=== PATIENT | female | born 1955 | race Caucasian/White ===

== ENCOUNTER 2020-02-07 10:01 | Inpatient (IN) | payer MEDICARE, OTHER, SELFPAY ==
[2020-02-07] VITALS (14 sets, daily range): BP systolic 128–192; BP diastolic 77–98; PULSE 125–158; RESP 13–22; TEMP 36.1–36.9; O2SAT 83–99; BMI 35.0
--- NOTE | ~2020-02-07 | US_ITS ---
EXAMINATION: US GUIDED NEEDLE BIOPSY WITH VACUUM ASSISTANCE DATE: 02/11/2020 14:31 CDT INDICATION: Multiple right breast masses seen on recent ultrasound. Ultrasound-guided core biopsy is requested to evaluate for malignancy. TECHNIQUE AND FINDINGS: The risks and potential benefits of the procedure were discussed with the patient, and written inform ed consent was obtained. After sterile preparation of the right breast, 1% lidocaine was utilized fo r local anesthesia. 1% lidocaine with epinephrine was used for deep anesthesia. A 10G vacuum-assisted biopsy gun needle was advanced through to the outer edge of the region of inter est from a superior approach utilizing sonographic guidance. A total of three tissue core samples we re obtained through each lesion, located at 9 and 1:00 positions.. An Inrad tissue marker clip was t hen placed at the biopsy site. Hemostasis was achieved. The patient tolerated procedure well and there was no evidence of immediate complication. The patien t was given verbal instructions partly is from the department. Patient was able to tolerate mammogram . The tissue samples were submitted to surgical pathology for histologic analysis.] IMPRESSION: 1. Successful ultrasound-guided vacuum-assisted biopsy of left/right breast mass with tissue marker placement. Please refer to pathology report for histologic analysis. Reviewed, dictated and finalized at location A. IMPRESSION: 1. Successful ultrasound-guided vacuum-assisted biopsy of left/right breast ma ss with tissue marker placement. Please refer to pathology report for histologi c analysis.
--- NOTE | ~2020-02-07 | US_ITS ---
US breast BI complete DATE: 02/08/2020 13:06 INDICATION: Right breast mass TECHNIQUE: High-resolution ultrasound imaging of both complete breasts. The patient is in the U. There are scanning limitations due to patient condition. COMPARISON: 02/07/2020 CT abdomen pelvis FINDINGS: Right breast: 1:00 6 cm from nipple: Irregular hypoechoic shadowing mass measuring 16 x 14 x 16 mm, highly suggesti ve of malignancy 9:00 7 cm from nipple: Irregular hypoechoic 25 x 15 x 21 mm mass with posterior shadowing, highly sug gestive of malignancy Left breast: No suspicious mass or shadowing is identified. IMPRESSION: BI-RADS Category 5: Highly suggestive of malignancy. Appropriate action should be taken. Dr. Portillo telephoned the report to [facility] Nurse Malone on 02/08/2020 at 1320 hours. Reviewed, dictated and finalized at Location [facility]. Reviewed, dictated and finalized at location A. IMPRESSION: BI-RADS Category 5: Highly suggestive of malignancy. Appropriate ac tion should be taken. Dr. Portillo telephoned the report to [facility] Nurse Malone on 02/08/2020 at 1320 hours.
--- NOTE | ~2020-02-07 | CT_ITS ---
EXAMINATION: CT abdomen pelvis w con EXAM DATE: 02/07/2020 12:28 INDICATION: Abdominal pain. Constipation. TECHNIQUE: Spiral CT of the abdomen and pelvis was performed following intravenous injection of 100 m L Omnipaque 350. Axial, coronal and sagittal images were reviewed. The dose-length product (DLP) fo r this examination was 1344.47 mGy-cm. The exposure was tailored according to patient size (auto mA exposure control), and iterative reconstruction (ASIR) was used as additional dose reduction techniqu e. Comparison is made to prior examination from 12/18/2009. FINDINGS: There is interval development of spiculated right breast soft tissue mass which is higher i n density than the normal stromal tissue, region measuring about 2.3 cm in diameter. Appearance is hi ghly suspicious for breast cancer. Recommend mammography. Interval development of scattered osteolyt ic disease throughout the thoracolumbar spine, pelvis, and hips with pathological compression fractur e of T8 which is nearly completely marrow replaced. Liver has a nodular contour, probably cirrhosis, with hypertrophied appearance to the left liver lobe . No focal density abnormality. There are gallstones within an otherwise unremarkable gallbladder. No evidence of obstructive biliary disease. Portal and splenic veins are patent. Kidneys enhance sy mmetrically. There is no hydronephrosis. The uterus is unremarkable. The bladder is unremarkable . There is no retroperitoneal or pelvic lymphadenopathy. There is mild scattered arteriosclerotic disease. The appendix is not positively visualized. There is no pericecal inflammatory change to suggest appe ndicitis. The stomach and small bowel are unremarkable. There is moderate amount of colonic stool. No free intraperitoneal gas. Heart is normal in size. There are small bilateral pleural effusion s. Bibasilar subsegmental atelectasis. IMPRESSION: 1. Right breast mass likely cancer; recommend mammography. 2. 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 3. Probable cirrhosis. 4. Cholelithiasis. 5. No acute intra-abdominal findings. Reviewed, dictated and finalized at location A.
--- NOTE | ~2020-02-07 | XR_ITS ---
XR abdomen NG/feed tube insert INDICATION: Evaluate NG tube position. TECHNIQUE: Limited KUB perform for evaluating NG tube . COMPARISON: No prior studies for comparison. FINDINGS: NG tube tip in the stomach. Visualized bowel gas pattern is unremarkable. IMPRESSION: 1: NG tube tip in the stomach. Reviewed, dictated and finalized at location A.
--- NOTE | ~2020-02-07 | XR_ITS ---
EXAMINATION: XR abdomen/kub 1V DATE: 02/08/2020 13:41 INDICATION: Abdominal pain. Constipation. TECHNIQUE: A supine view of the abdomen on 2 radiographs was obtained. COMPARISON: CT abdomen and pelvis 02/07/2020 FINDINGS: The colon is mildly distended. There is a small volume of stool in the colon. The small bow el is normal in caliber. IMPRESSION: 1. Mildly distended colon, likely adynamic ileus. Reviewed, dictated and finalized at location A.
--- NOTE | ~2020-02-07 | XR_ITS ---
EXAMINATION: XR abdomen/kub 1V EXAM DATE: 02/09/2020 13:30 INDICATION: Constipation. Newly found right breast mass and scattered osteolytic disease. TECHNIQUE: Frontal projection(s) of the abdomen for interpretation. Comparison is made to prior exami nation from 02/07. FINDINGS: Feeding tube projects over gastric body, antrum, expected position. There is moderate amou nt of colonic stool and gas. No dilated small bowel. Bowel gas overlies the bones There is no organom egaly. IMPRESSION: 1. Moderate amount of colonic stool and gas. Reviewed, dictated and finalized at location A.
--- NOTE | 2020-02-07 10:08 | ED.ABDPAIN ---
HPI - Abdominal Pain General Chief Complaint: Abdominal Pain Stated Complaint: Abd pain Source: RN notes reviewed History of Present Illness HPI narrative: Patient presents emergency department from home for abdominal pain. Patient states pain can 2 days ago pain is described as diffuse and sharp and stabbing. Patient states she has been constipated and been taking laxatives with minimal relief. She notes one episode of emesis earlier today. Denies any fevers or chills chest pain shortness of breath or any other symptoms Related Data Home Medications Medication Instructions Recorded Confirmed amlodipine 10 mg PO DAILY 02/07/20 02/07/20 calcium carbonate [Calcium 600] 600 mg PO DAILY 02/07/20 02/07/20 cholecalciferol (vitamin D3) 125 mcg PO DAILY 02/07/20 02/07/20 [Vitamin D3] citalopram 20 mg PO HS 02/07/20 02/07/20 cyanocobalamin (vitamin B-12) 1,000 mcg PO DAILY 02/07/20 02/07/20 [Vitamin B-12] diazepam 5 mg PO Q8H 02/07/20 02/07/20 dimethyl fumarate [Tecfidera] 240 mg PO Q12H 02/07/20 02/07/20 levothyroxine 75 mcg PO DAILY 02/07/20 02/07/20 tizanidine 4 mg PO BID 02/07/20 02/07/20 tizanidine 5 mg PO HS 02/07/20 02/07/20 tramadol 50 mg PO Q6H 02/07/20 02/07/20 venlafaxine 150 mg PO HS 02/07/20 02/07/20 Allergies Allergy/AdvReac Type Severity Reaction Status Date / Time No Known Drug Allergies Allergy Other Verified 02/07/20 15:48 Review of Systems Review of Systems: Narrative: Gen.: Denies fevers or chills ENT: Denies congestion Respiratory: Denies shortness of breath or cough CV: Denies chest pain or palpitations GI: See HPI denies burning, urgency, frequency or hematuria Musculoskeletal: Denies back pain or muscle pain Neuro: Denies numbness, tingling, weakness or focal weakness Skin: Denies rash Except as documented, all other systems reviewed and negative [facility] Past Medical History Medical History (Updated 02/07/20 @ 16:55 by Harshil Coreas DO) Multiple sclerosis Family History Family History (Updated 02/07/20 @ 16:48 by Julianne Patel RN) Other Unknown family medical history Social History Social History (Updated 02/07/20 @ 10:09 by Harshil Coreas DO) Years smoked: 10 Smoking status: Former smoker Tobacco type: cigarettes Second hand tobacco smoke exposure: Yes Alcohol intake: never Substance use: never Gender identity (if verbalized by the patient): Female Spiritual care concerns: No Exam Narrative: Exam Narrative: APPEARANCE: No acute distress, nontoxic, resting in bed HEENT: Normocephalic, atraumatic, OMM RESPIRATORY: No respiratory distress, clear to auscultation bilaterally with no rhonchi wheezing or rales CARDIOVASCULAR: Tachycardic and regular s murmur ABDOMINAL: Distended and firm, diffusely tender to palpation no rebound or guarding MUSCULOSKELETAl: Moves all extremities. No clubbing, cyanosis or edema. NEURO: Awake and alert. Following commands, speech normal, no focal deficits SKIN:: Warm, dry. Normal Color PSYCHIATRIC: Normal affect/mood Course Course Emergency Course: Discussed with patient's power of defense attorney Bambi updated on CT results. She states the patient has been complaining of back pain for the past 1 month states the patient has been having increasing constipation they have been giving enemas at home with minimal relief Discussed with the patient results of the work-up. Patient is unsure if she wants treatment but does wish to know the extent of treatment and possible outcomes Discussed with MARTHA Botello for Dr. Hamilton presentation work-up. Agrees with admission at this time Discussed with patient and family results of workup and diagnosis. Discussed need for admission. Patient and family understand and agree to current treatment plan Vital Signs Vital signs: Vital Signs Temperature 98.4 F 02/07/20 10:02 Pulse Rate 133 H 02/07/20 10:02 Respiratory Rate 20 02/07/20 10:02 Blood Pressure 173/93 H 02/07/20 10:02
[2020-02-07] MEDS: SODIUM CHLORIDE 0.9% IV 1,000 ML 999 ML IV CONT (10:17)
--- NOTE | 2020-02-07 10:38 | PC.NURSE ---
unable to obtain blood at this time. RN notified.
[2020-02-07 10:54] LABS: Add Urine Microscopic? YES; Appearance Urine Clear (Clear); Bacteria Urine Trace /hpf; Bilirubin Urine Negative (Negative); Blood Urine 1+ (Negative); Color Urine Yellow (Yellow); Glucose Urine UA Negative (Negative); Ketones Urine 1+ mg/dL (Negative); Leukocyte Esterase Ur 2+ LEU/UL (Negative); Mucus Urine Rare /lpf; Nitrate Urine Negative (Negative); Protein Urine Negative (Negative); RBC Urine 21-50 /hpf (0-2); Specific Grav Ur 1.013 (1.001-1.035); Squamous Epithelial Cell Urine Occasional /hpf (Few); Urobilinogen Urine Negative mg/dL (<2.0); WBC Urine 31-50 /hpf
--- NOTE | 2020-02-07 11:00 | PC.NURSE ---
Phlebotomy in room for difficult lab draw.
--- NOTE | 2020-02-07 11:29 | PC.NURSE ---
Lab phlebotomy unable to get blood cultures or lactic, informed Dr Coreas
[2020-02-07 11:38] LABS: Basophils Percent Auto 0.5 % (0.2-1.2); Eosinophils Absolute Auto 0.1 K/mm3 (0-0.3); Eosinophils Percent Auto 1.3 % (0-4.4); Hematocrit 39.2 % (37.0-47.0); Hemoglobin 12.5 g/dL (12.0-15.0); Immature Granulocyte Absolute 0.06 K/mm3 (0.00-0.031); Immature Granulocyte Percent A 0.8 % (0-0.5); Lymphocytes Absolute Auto 0.91 K/mm3 (0.9-3.2); Lymphocytes Percent Auto 11.7 % (18.3-44.2); Mean Corpuscular HGB Conc 31.9 g/dl (32-36); Mean Corpuscular Hemoglobin 28.1 pg (26-34); Mean Corpuscular Volume 88.1 fl (80-100); Mean Platelet Volume 9.5 fl (7.4-10.4); Monocytes Absolute Auto 0.5 K/mm3 (0.1-0.6); Monocytes Percent Auto 6.3 % (2.6-8.5); Neutrophils Absolute Auto 6.2 K/mm3 (1.3-6.7); Neutrophils Percent Auto 79.4 % (45.5-73.1); Platelet Count Result 349 k/mm3 (150-375); Red Blood Count 4.45 M/mm3 (4.2-5.4); Red Cell Distribution Width 15.6 % (11.5-14.5); White Blood Count 7.8 K/mm3 (4.5-10.0)
[2020-02-07 11:49] LABS: INR 1.1; Prothrombin Time 13.8 Seconds (11.1-14.7)
[2020-02-07 11:50] LABS: Partial Thromboplastin Time 23.4 SECONDS (22.3-36.8)
[2020-02-07 12:00] LABS: Alanine Aminotransferase 83 U/L (4-35); Albumin Level 4.5 g/dL (3.5-5.1); Alkaline Phosphatase 280 U/L (38-126); Aspartate Amino Transferase 74 U/L (14-36); Bilirubin,Total 0.6 mg/dL (0.2-1.3); Blood Urea Nitrogen 8 mg/dL (7-17); Carbon Dioxide 23 mmol/L (22-30); Chloride 100 mmol/L (98-107); Estimated CRCL calculation 117 ml/min; Estimated Glomerular Filt Rate > 60; Glucose 174 mg/dL (65-105); Lipase 80 U/L (23-300); Sodium 140 mmol/L (137-145)
[2020-02-07 12:17] LABS: Lactic Acid Reflex 0.8 mmol/L (0.7-2.1)
[2020-02-07] MEDS: MORPHINE SULFATE 4 MG/ML INJ IV PUSH (13:10)
--- NOTE | 2020-02-07 15:00 | PC.NURSE ---
This patient, Ivonne Saldaña, was admitted to IMU Room 214-01. Patient/family oriented to hospital policies and general routines including ID bracelet, bed and alarms, visiting hours, pain management, procedures, bathroom and other care routines, personal items, smoking policy, room service/diet, and visiting hours. Valuables list has been completed. Information on how to activate the Rapid Response Team has been discussed. Patient/Family are encouraged to report perceived risks to care and to ask questions if they do not understand what they are told or what they should do.
[2020-02-07] MEDS: SODIUM CHLORIDE 0.9% IV 1,000 ML 125 ML IV CONT (15:42)
[2020-02-07] MEDS: ONDANSETRON INJ 4 MG/2 ML VIAL IV PUSH (17:04)
--- NOTE | 2020-02-07 17:48 | PDONCCN ---
HPI - Date of Consult Date/Time: 02/07/20 17:49 Requesting Physician: Nga Colvin MD Primary Care Provider: Dada Lozano, - Consult Narrative Reason for consult: Right breast mass Narrative: Ivonne Saldaña is a 64 year old female This is a pleasant 64-year-old female with history of multiple sclerosis for more than 30 years duration and has been on wheelchair for last at least 5 years duration. Patient has chronic constipation and has has been on laxative for long time. She developed abdominal distention with back pain about 3-4 days ago. Her last bowel movement was about 3 days ago. She denies any lumps and bowels. Her last mammogram was more than 10 years ago. She denies any weight loss. Denies any other complaints. In the ER CT scan was ordered that showed right breast mass and scattered osteolytic lesion with T8 compression fracture Review of Systems - Review of Systems All systems reviewed & are unremarkable except as noted in HPI and [facility] Medical History: Medical History (Last Reviewed 02/07/20 @ 17:51 by Connor Broussard MD) Multiple sclerosis Family History: Family History (Last Updated 02/07/20 @ 17:53 by Connor Broussard MD) Mother Leukemia Father Throat cancer Mother No problems noted. Other Unknown family medical history - Social History Social History: Social History (Last Reviewed 02/07/20 @ 17:53 by Connor Broussard MD) Gender Identity: Gender identity (if verbalized by the patient): Female Alcohol Use: Alcohol intake: never Substance Use: Substance use: never Others: Spiritual care concerns: No Smoking Status: Smoking status: Former smoker Tobacco type: cigarettes Second hand tobacco smoke exposure: Yes Approximate Smoking End Date: 30 years ago Smoking Pack-years: Years smoked: 10 Meds Home Medications Medication Instructions Recorded Confirmed Type amlodipine 10 mg PO DAILY 02/07/20 02/07/20 History calcium carbonate [Calcium 600] 600 mg PO DAILY 02/07/20 02/07/20 History cholecalciferol (vitamin D3) 125 mcg PO DAILY 02/07/20 02/07/20 History [Vitamin D3] citalopram 20 mg PO HS 02/07/20 02/07/20 History cyanocobalamin (vitamin B-12) 1,000 mcg PO DAILY 02/07/20 02/07/20 History [Vitamin B-12] diazepam 5 mg PO Q8H 02/07/20 02/07/20 History dimethyl fumarate [Tecfidera] 240 mg PO Q12H 02/07/20 02/07/20 History levothyroxine 75 mcg PO DAILY 02/07/20 02/07/20 History tizanidine 4 mg PO BID 02/07/20 02/07/20 History tizanidine 5 mg PO HS 02/07/20 02/07/20 History tramadol 50 mg PO Q6H 02/07/20 02/07/20 History venlafaxine 150 mg PO HS 02/07/20 02/07/20 History Allergies Allergy/AdvReac Type Severity Reaction Status Date / Time No Known Drug Allergies Allergy Other Verified 02/07/20 15:48 Results - Labs CBC & Chem 7: 02/07/20 11:30 02/07/20 11:30 Labs: Short CBC 02/07/20 Range/Units 11:30 WBC 7.8 (4.5-10.0) K/mm3 Hgb 12.5 (12.0-15.0) g/dL Hct 39.2 (37.0-47.0) % Plt Count 349 (150-375) k/mm3 BMP 02/07/20 11:30 Sodium 140 Potassium 4.0 Chloride 100 Carbon Dioxide 23 BUN 8 Creatinine 0.40 L Glucose 174 H Calcium 10.0 Liver Function 02/07/20 Range/Units 11:30 Total Bilirubin 0.6 (0.2-1.3) mg/dL AST 74 H (14-36) U/L ALT 83 H (4-35) U/L Alkaline Phosphatase 280 H (38-126) U/L Albumin 4.5 (3.5-5.1) g/dL Urine 02/07/20 Range/Units 10:42 Urine Color Yellow (Yellow) Urine Appearance Clear (Clear) Urine pH 7.0 (5.0-9.0) Ur Specific [place] 1.013 (1.001-1.035) Urine Protein Negative (Negative) mg/dL Urine Glucose (UA) Negative (Negative) mg/dL Assessment and Plan - Additional Plan Right breast mass. On my examination there is at least 3-4 cm right breast mass at 9:00 a.m. position without any axillary lymphadenopathy. There is no masses in th
--- NOTE | 2020-02-07 18:23 | PM.IMHP ---
H&P: HPI History of Present Illness Chief complaint: Breast mass with lytic lesions/UTI/abdominal pain/ Narrative: Ivonne Saldaña is a 64 year old female Who has a history of multiple sclerosis. The patient typically has doors that comes into her house and helps throughout. She lives home alone. She came to the emergency room for complaints of abdominal pain I talked to Bambi who stated that the patient has been having some abdominal pain and lower back pain for at least 2 weeks. The patient typically has a normal bowel regimen and believes that the patient had an at [place] enema about a week ago. The patient stated she has not had a bowel movement 3 days. She has tried lactulose and that did seem to help. Her abdomen is distended and firm. The patient had a emesis prior to me coming in to see her about a 1000 cc. She is incontinent of urine. She is requesting a Whitlock catheter. She has had no fever chills. She feels weaker than normal. She has had MS for several years she had symptoms that started back in the 70s but was not officially diagnosed until 1994. Her lesions were seen on her spine. She was given IV Tylenol, normal saline IV fluids, IV morphine, and Rocephin. she was tachycardic with heart rate in the 120s. She was placed in the IMU because of her tachycardia. Patient was positive for UTI. She had an abdominal pelvis CT which was read as right breast mass likely cancer recommend mammographically, scattered osteolytic lesion with pathological compression fracture T8. Probable cirrhosis. Cholelithiasis. No acute abdominal findings. Oncology has been consulted and has already seen the patient. Oncology recommended mammogram and ultrasound-guided biopsy. The patient is agreeable. She and the power mergers and acquisitions attorney agreed that the patient will be a DNR. She says she has been thinking about this prior to her diagnosis today and wishes to be a DNR. Date of service is 02/07/2020. Patient also complains of increased weakness so possible exacerbation of her MS versus a UTI. I spent at least 1 hour with the patient. Review of Systems Review of Systems: All systems reviewed & are unremarkable except as noted in HPI and below Constitutional: Constitutional: Reports as per HPI and Reports no additional constitutional complaints Eyes: Eyes: Reports as per HPI and Reports no additional eye complaints ENT: Reports system reviewed and no additional complaints, except as documented and Reports Normal hearing present Cardiovascular: Cardiovascular: Reports no additional cardiovascular complaints Respiratory: Respiratory: Reports no additional respiratory complaints and Reports no additional respiratory complaints Gastrointestinal: Gastrointestinal: Reports as per HPI and Reports no additional gastrointestinal complaints Musculoskeletal: Musculoskeletal: Reports no additional musculoskeletal complaints Integumentary/Breasts: Skin/Breast: Reports system reviewed and no additional complaints, except as docu and Reports as per HPI Neurologic: Reports system reviewed and no additional complaints, except as documented, Reports as per HPI and Reports Normal hearing present Psychiatric: Psychiatric: Reports no additional psychiatric complaints and Reports as per HPI Endocrine: Endocrine: Reports no additional endocrine complaints Hematologic/Lymphatic: Hematologic/Lymphatic: Reports no additional hematologic/lymphatic complaints Allergic/Immunologic: Allergic/Immunologic: Reports no additional allergic/immunologic complaints [facility] Past Medical History Medical History (Updated 02/07/20 @ 18:30 by Rosmery Santa NP) Anxiety and depression History of hepatitis C completed treatment Hypertension Hypothyroidism Multiple sclerosis Surgical History Surgical History (Updated 02/07/20 @ 18:30 by Rosmery Santa NP) H/O bilateral cataract extraction Family History Family History Mot
[2020-02-07] MEDS: METHYLNALTREXONE 12 MG/0.6 ML VIAL SUB-Q (21:41)
[2020-02-07] MEDS: methylPREDNISolone SOD SUCC 500 MG in DEXTROSE 5% 100 ML 200 MG IVPB (21:45)
[2020-02-07] MEDS: hydrALAZINE HCL 20 MG/ML VIAL 10 MG IV PUSH (21:46)
[2020-02-08] VITALS (14 sets, daily range): BP systolic 152–173; BP diastolic 76–96; PULSE 106–133; RESP 20–24; TEMP 36.1–36.9; O2SAT 95–100
[2020-02-08] MEDS: ONDANSETRON INJ 4 MG/2 ML VIAL IV PUSH ×2 (00:13→09:18)
[2020-02-08] MEDS: SODIUM CHLORIDE 0.9% IV 1,000 ML 125 ML IV CONT ×3 (00:15→18:22)
[2020-02-08 06:25] LABS: Basophils Percent Auto 0.3 % (0.2-1.2); Hematocrit 38.9 % (37.0-47.0); Hemoglobin 12.5 g/dL (12.0-15.0); Immature Granulocyte Percent A 1.1 % (0-0.5); Lymphocytes Absolute Auto 0.81 K/mm3 (0.9-3.2); Lymphocytes Percent Auto 9.1 % (18.3-44.2); Mean Corpuscular HGB Conc 32.1 g/dl (32-36); Mean Corpuscular Hemoglobin 28.2 pg (26-34); Mean Corpuscular Volume 87.8 fl (80-100); Mean Platelet Volume 8.7 fl (7.4-10.4); Monocytes Absolute Auto 0.1 K/mm3 (0.1-0.6); Monocytes Percent Auto 0.6 % (2.6-8.5); Neutrophils Absolute Auto 7.9 K/mm3 (1.3-6.7); Neutrophils Percent Auto 88.9 % (45.5-73.1); Platelet Count Result 377 k/mm3 (150-375); Red Blood Count 4.43 M/mm3 (4.2-5.4); Red Cell Distribution Width 15.4 % (11.5-14.5); White Blood Count 8.9 K/mm3 (4.5-10.0)
[2020-02-08 06:41] LABS: Alanine Aminotransferase 80 U/L (4-35); Albumin Level 4.5 g/dL (3.5-5.1); Alkaline Phosphatase 280 U/L (38-126); Aspartate Amino Transferase 55 U/L (14-36); Bilirubin,Total 0.6 mg/dL (0.2-1.3); Blood Urea Nitrogen 6 mg/dL (7-17); Calcium 9.2 mg/dL (8.4-10.2); Carbon Dioxide 24 mmol/L (22-30); Chloride 97 mmol/L (98-107); Estimated CRCL calculation 117 ml/min; Estimated Glomerular Filt Rate > 60; Glucose 306 mg/dL (65-105); Lipase 175 U/L (23-300); Sodium 136 mmol/L (137-145)
[2020-02-08] MEDS: LEVOTHYROXINE SODIUM INJ 100 MCG/5 ML VIAL 35 MCG IV PUSH (06:54)
[2020-02-08 07:48] LABS: Hepatitis C Virus Antibody Reactive (Negative)
[2020-02-08 07:58] LABS: Thyroid Stimulating Hormone Reflex 0.999 uIU/mL (0.465-4.68)
[2020-02-08] MEDS: methylPREDNISolone SOD SUCC 500 MG in DEXTROSE 5% 100 ML 200 MG IVPB ×2 (09:18→20:52)
[2020-02-08] MEDS: METOCLOPRAMIDE HCL INJ 10 MG/2 ML VIAL IV PUSH (13:18)
--- NOTE | 2020-02-08 17:21 | PM.IMPN ---
Progress Note: A&P Assessment and Plan (1) Abdominal pain: Code(s): R10.9 - Unspecified abdominal pain Status: Acute Assessment and Plan: Could be related to her constipation. Could also be reading eating from her back since she has a compression fracture and lytic lesions on her back as well. I did order Relistor for her constipation. She also has pain medication ordered. 02/08/20 17:21 64-year-old female with history of multiple sclerosis a 30 year and has been bedridden on wheels classify fever with history of chronic constipation due possibly to pain medication, and presented emergency department with a complaint abdominal pain nausea CT scan of the abdomen was done, however it showed right breast mass with osteolytic lesion in T8, suspicious for malignancy, today patient complains of abdominal distention nausea have an episode of vomiting, KUB showed ileus and gas, with small amount of stool, will place the patient NG tube with intermittent suction relieve some of her symptoms, oncologist recommended ultrasound-guided biopsy of the further evaluate. (2) Acute UTI: Code(s): N39.0 - Urinary tract infection, site not specified Status: Acute Assessment and Plan: continue with Rocephin and cultures are pending. (3) Breast mass, right: Code(s): N63.10 - Unspecified lump in the right breast, unspecified quadrant Status: Acute Assessment and Plan: I spoke with oncologist who recommended that we do a breast biopsy. Breast nodule right breast 9 o'clock position. (4) Lytic bone lesions on xray: Code(s): M89.9 - Disorder of bone, unspecified Status: Acute Assessment and Plan: Oncology has seen the patient. Will wait for biopsy results. Ultrasound biopsy of the right breast has been ordered. And also mammogram. (5) Hypothyroidism: Code(s): E03.9 - Hypothyroidism, unspecified Status: Chronic Assessment and Plan: Since she is NPO and she vomited I changed her thyroid medicine to IV push. (6) Hypertension: Code(s): I10 - Essential (primary) hypertension Status: Chronic Assessment and Plan: She is NPO at this time her home medications have been placed on hold. I did order p.r.n. hydralazine. (7) Constipation: Code(s): K59.00 - Constipation, unspecified Status: Acute Assessment and Plan: I ordered Relistor at this time. But otherwise will try a soapsuds enema she has not had a bowel movement 3 days. (8) Back pain: Code(s): M54.9 - Dorsalgia, unspecified Status: Acute Assessment and Plan: Could be related to the lytic lesions are the compression fracture. (9) Urinary incontinence: Code(s): R32 - Unspecified urinary incontinence Status: Acute Assessment and Plan: We did order a Whitlock catheter. (10) Anxiety and depression: Code(s): F41.9 - Anxiety disorder, unspecified; F32.9 - Major depressive disorder, single episode, unspecified Status: Chronic Assessment and Plan: P.r.n. Ativan. (11) Multiple sclerosis: Code(s): G35 - Multiple sclerosis Status: Acute Assessment and Plan: Patient's home medication is non formulary here tecfidera. it is here in available but however the patient is NPO at this time so I did IV Solu-Medrol. I double checked the high dose each with up-to-date as well as pharmacy for the dosage. Subjective Date/time seen: 02/08/20 17:21 64-year-old female with history of multiple sclerosis a 30 year and has been bedridden on wheels classify fever with history of chronic constipation due possibly to pain medication, and presented emergency department with a complaint abdominal pain nausea CT scan of the abdomen was done, however it showed right breast mass with osteolytic lesion in T8, suspicious for malignancy, today patient complains of abdominal distention nausea have an episode of vomiting, K
[2020-02-08] MEDS: hydrALAZINE HCL 20 MG/ML VIAL 10 MG IV PUSH (20:51)
[2020-02-09] VITALS (16 sets, daily range): BP systolic 149–170; BP diastolic 65–97; PULSE 108–129; RESP 18–26; TEMP 36.2–37.2; O2SAT 92–100
[2020-02-09] MEDS: SODIUM CHLORIDE 0.9% IV 1,000 ML 125 ML IV CONT ×2 (03:44→12:28)
[2020-02-09] MEDS: hydrALAZINE HCL 20 MG/ML VIAL 10 MG IV PUSH (05:45)
[2020-02-09] MEDS: LEVOTHYROXINE SODIUM INJ 100 MCG/5 ML VIAL 35 MCG IV PUSH (05:46)
[2020-02-09] MEDS: methylPREDNISolone SOD SUCC 500 MG in DEXTROSE 5% 100 ML 200 MG IVPB ×2 (09:03→21:42)
[2020-02-09 10:32] LABS: Hematocrit 38.3 % (37.0-47.0); Hemoglobin 12.3 g/dL (12.0-15.0); Mean Corpuscular HGB Conc 32.1 g/dl (32-36); Mean Corpuscular Hemoglobin 28.1 pg (26-34); Mean Corpuscular Volume 87.6 fl (80-100); Mean Platelet Volume 8.9 fl (7.4-10.4); Platelet Count Result 377 k/mm3 (150-375); Red Blood Count 4.37 M/mm3 (4.2-5.4); Red Cell Distribution Width 15.6 % (11.5-14.5); White Blood Count 13.8 K/mm3 (4.5-10.0)
[2020-02-09 10:44] LABS: Alanine Aminotransferase 71 U/L (4-35); Albumin Level 4.3 g/dL (3.5-5.1); Alkaline Phosphatase 222 U/L (38-126); Anion Gap 13.1 mmol/L (7-16); Aspartate Amino Transferase 50 U/L (14-36); Bilirubin,Total 0.3 mg/dL (0.2-1.3); Blood Urea Nitrogen 11 mg/dL (7-17); Calcium 8.9 mg/dL (8.4-10.2); Carbon Dioxide 31 mmol/L (22-30); Chloride 98 mmol/L (98-107); Estimated CRCL calculation 115 ml/min; Estimated Glomerular Filt Rate > 60; Glucose 323 mg/dL (65-105); Potassium 3.1 mmol/L (3.4-5.0); Sodium 139 mmol/L (137-145)
--- NOTE | 2020-02-09 14:20 | PM.IMPN ---
Progress Note: A&P Assessment and Plan (1) Abdominal pain: Code(s): R10.9 - Unspecified abdominal pain Status: Acute Assessment and Plan: 02/09/20 14:20 64-year-old female with history of multiple sclerosis a 30 year and has been bedridden on wheels classify fever with history of chronic constipation due possibly to pain medication, and presented emergency department with a complaint abdominal pain nausea, CT scan of the abdomen was done, however it showed right breast mass with osteolytic lesion in [id number] fracture, oncologist recommended ultrasound-guided biopsy of the further evaluate. suspicious for malignancy, oncologist recommended ultrasound-guided biopsy of the further evaluate. on 02/07 patient also complained of abdominal distention nausea have an episode of vomiting, KUB showed ileus and gas, with small amount of stool, patient was placed on NG tube, with intermittent suction relieve some of her symptoms, patient NG tube is draining green bile like a today patient states feeling better not as nauseated, and passing gas her repeat KUB today showed no ileus moderate amount of stool and some days, will take NG tube out, will start the patient on clear liquid, get the patient to collect suppository and Colace and will monitor. (2) Acute UTI: Code(s): N39.0 - Urinary tract infection, site not specified Status: Acute Assessment and Plan: urine culture is growing E coli pansensitive will continue Rocephin. (3) Breast mass, right: Code(s): N63.10 - Unspecified lump in the right breast, unspecified quadrant Status: Acute Assessment and Plan: I spoke with oncologist who recommended that we do a breast biopsy. Breast nodule right breast 9 o'clock position. (4) Lytic bone lesions on xray: Code(s): M89.9 - Disorder of bone, unspecified Status: Acute Assessment and Plan: Oncology has seen the patient. Will wait for biopsy results. Ultrasound biopsy of the right breast has been ordered. And also mammogram. (5) Hypothyroidism: Code(s): E03.9 - Hypothyroidism, unspecified Status: Chronic Assessment and Plan: Since she is NPO and she vomited I changed her thyroid medicine to IV push. (6) Hypertension: Code(s): I10 - Essential (primary) hypertension Status: Chronic Assessment and Plan: She is NPO at this time her home medications have been placed on hold. I did order p.r.n. hydralazine. (7) Constipation: Code(s): K59.00 - Constipation, unspecified Status: Acute Assessment and Plan: I ordered Relistor at this time. But otherwise will try a soapsuds enema she has not had a bowel movement 3 days. (8) Back pain: Code(s): M54.9 - Dorsalgia, unspecified Status: Acute Assessment and Plan: Could be related to the lytic lesions are the compression fracture. (9) Urinary incontinence: Code(s): R32 - Unspecified urinary incontinence Status: Acute Assessment and Plan: We did order a Whitlock catheter. (10) Anxiety and depression: Code(s): F41.9 - Anxiety disorder, unspecified; F32.9 - Major depressive disorder, single episode, unspecified Status: Chronic Assessment and Plan: P.r.n. Ativan. (11) Multiple sclerosis: Code(s): G35 - Multiple sclerosis Status: Acute Assessment and Plan: Patient's home medication is non formulary here tecfidera. it is here in available but however the patient is NPO at this time so I did IV Solu-Medrol. I double checked the high dose each with up-to-date as well as pharmacy for the dosage. Subjective Date/time seen: 02/09/20 14:20 64-year-old female with history of multiple sclerosis a 30 year and has been bedridden on wheels classify fever with history of chronic constipation due possibly to pain medication, and presented emergency department with a complaint abdominal pain nausea, C
[2020-02-09] MEDS: BISACODYL 10 MG SUPPOSITORY RECTAL (15:48)
[2020-02-09] MEDS: DOCUSATE SODIUM 100 MG CAPSULE PO (20:54)
[2020-02-10] VITALS (9 sets, daily range): BP systolic 152–174; BP diastolic 69–94; PULSE 104–123; RESP 20–22; TEMP 36.6–36.9; O2SAT 94–100
[2020-02-10] MEDS: hydrALAZINE HCL 20 MG/ML VIAL 10 MG IV PUSH ×2 (00:47→08:54)
[2020-02-10] MEDS: SODIUM CHLORIDE 0.9% IV 1,000 ML 125 ML IV CONT ×3 (01:59→20:58)
[2020-02-10 04:09] LABS: Hemoglobin 12.5 g/dL (12.0-15.0); Mean Corpuscular HGB Conc 32.1 g/dl (32-36); Mean Corpuscular Hemoglobin 28.2 pg (26-34); Mean Platelet Volume 8.5 fl (7.4-10.4); Platelet Count Result 345 k/mm3 (150-375); Red Blood Count 4.43 M/mm3 (4.2-5.4); Red Cell Distribution Width 15.5 % (11.5-14.5); White Blood Count 12.5 K/mm3 (4.5-10.0)
[2020-02-10 04:26] LABS: Alanine Aminotransferase 67 U/L (4-35); Albumin Level 4.2 g/dL (3.5-5.1); Alkaline Phosphatase 207 U/L (38-126); Anion Gap 13.3 mmol/L (7-16); Aspartate Amino Transferase 43 U/L (14-36); Bilirubin,Total 0.5 mg/dL (0.2-1.3); Blood Urea Nitrogen 14 mg/dL (7-17); Calcium 8.7 mg/dL (8.4-10.2); Carbon Dioxide 29 mmol/L (22-30); Chloride 98 mmol/L (98-107); Estimated CRCL calculation 115 ml/min; Estimated Glomerular Filt Rate > 60; Glucose 386 mg/dL (65-105); Potassium 3.3 mmol/L (3.4-5.0); Sodium 137 mmol/L (137-145)
[2020-02-10] MEDS: LEVOTHYROXINE SODIUM INJ 100 MCG/5 ML VIAL 35 MCG IV PUSH (05:43)
[2020-02-10] MEDS: DOCUSATE SODIUM 100 MG CAPSULE PO ×2 (08:53→20:58)
[2020-02-10] MEDS: methylPREDNISolone SOD SUCC 500 MG in DEXTROSE 5% 100 ML 200 MG IVPB (08:53)
[2020-02-10] MEDS: POTASSIUM CHLORIDE 20 MEQ TABLET 40 MEQ PO (08:53)
[2020-02-10] MEDS: METHYLNALTREXONE 12 MG/0.6 ML VIAL SUB-Q (09:53)
--- NOTE | 2020-02-10 12:25 | PM.IMPN ---
Progress Note: A&P Assessment and Plan (1) Abdominal pain: Code(s): R10.9 - Unspecified abdominal pain Status: Acute Assessment and Plan: 02/10/20 12:25 64-year-old female with history of multiple sclerosis a 30 year and has been bedridden on wheels classify fever with history of chronic constipation due possibly to pain medication, and presented emergency department with a complaint abdominal pain nausea, CT scan of the abdomen was done, however it showed right breast mass with osteolytic lesion in [id number] fracture, oncologist recommended ultrasound-guided biopsy of the further evaluate. suspicious for malignancy, oncologist recommended ultrasound-guided biopsy of the further evaluate. on 02/07 patient also complained of abdominal distention nausea have an episode of vomiting, KUB showed ileus and gas, with small amount of stool, patient was placed on NG tube, with intermittent suction relieve some of her symptoms, patient NG tube is draining green bile like a today patient states feeling better not as nauseated, and passing gas her repeat KUB on 02/08 showed no ileus moderate amount of stool and some gas, pull NG tube out, staredt the patient on clear liquid, gave the patient to suppository and Colace. today patient states passing able to tolerate clear liquid, denies any nausea or vomiting, will continue Colace and suppository, will add relistore, and will monitor. patient will have ultrasound and biopsy tomorrow. (2) Acute UTI: Code(s): N39.0 - Urinary tract infection, site not specified Status: Acute Assessment and Plan: urine culture is growing E coli pansensitive will continue Rocephin. (3) Breast mass, right: Code(s): N63.10 - Unspecified lump in the right breast, unspecified quadrant Status: Acute Assessment and Plan: I spoke with oncologist who recommended that we do a breast biopsy. Breast nodule right breast 9 o'clock position. (4) Lytic bone lesions on xray: Code(s): M89.9 - Disorder of bone, unspecified Status: Acute Assessment and Plan: Oncology has seen the patient. Will wait for biopsy results. Ultrasound biopsy of the right breast has been ordered. And also mammogram. (5) Hypothyroidism: Code(s): E03.9 - Hypothyroidism, unspecified Status: Chronic Assessment and Plan: Since she is NPO and she vomited I changed her thyroid medicine to IV push. (6) Hypertension: Code(s): I10 - Essential (primary) hypertension Status: Chronic Assessment and Plan: She is NPO at this time her home medications have been placed on hold. I did order p.r.n. hydralazine. (7) Constipation: Code(s): K59.00 - Constipation, unspecified Status: Acute Assessment and Plan: I ordered Relistor at this time. But otherwise will try a soapsuds enema she has not had a bowel movement 3 days. (8) Back pain: Code(s): M54.9 - Dorsalgia, unspecified Status: Acute Assessment and Plan: Could be related to the lytic lesions are the compression fracture. (9) Urinary incontinence: Code(s): R32 - Unspecified urinary incontinence Status: Acute Assessment and Plan: We did order a Whitlock catheter. (10) Anxiety and depression: Code(s): F41.9 - Anxiety disorder, unspecified; F32.9 - Major depressive disorder, single episode, unspecified Status: Chronic Assessment and Plan: P.r.n. Ativan. (11) Multiple sclerosis: Code(s): G35 - Multiple sclerosis Status: Acute Assessment and Plan: Patient's home medication is non formulary here [employer]. it is here in available but however the patient is NPO at this time so I did IV Solu-Medrol. I double checked the high dose each with up-to-date as well as pharmacy for the dosage. Subjective Date/time seen: 02/10/20 12:25 64-year-old female with history of multiple sclerosis a 30 year and has
--- NOTE | 2020-02-10 13:02 | PHAR ---
HOME RX VERIFIED = [facility] [id number] TECFIDERA 240 MG CAPS BID
[2020-02-10] MEDS: amLODIPine BESYLATE 5 MG TABLET 10 MG PO (13:18)
[2020-02-10] MEDS: diazePAM 5 MG TABLET PO ×2 (13:18→20:59)
[2020-02-10] MEDS: TIZANIDINE HCL 4 MG TABLET PO ×3 (17:28→21:02)
[2020-02-10] MEDS: TIZANIDINE HCL 1 MG TABLET PO (20:58)
[2020-02-10] MEDS: VENLAFAXINE HCL XR 75 MG CAP.ER.24H 150 MG PO (20:59)
[2020-02-10] MEDS: traMADol HCL 50 MG TABLET PO (20:59)
[2020-02-10] MEDS: CITALOPRAM HYDROBROMIDE 20 MG TABLET PO (21:00)
--- NOTE | 2020-02-10 21:47 | PC.NURSE ---
pt. woke up from a sound sleep. Was confused and thought she was at home. RN tired to reorient pt. but the pt. became very verbally abusive to rn. rn continued to try to talk to pt. but pt. continued with the verbal abuse. Bambi WAITE was called and tried to talk to pt on the phone. The pt. still remains angry. will continue to monitor pt. closely.
[2020-02-11] VITALS: PULSE 106; RESP 18
[2020-02-11 04:37] LABS: Hematocrit 31.4 % (37.0-47.0); Hemoglobin 10.2 g/dL (12.0-15.0); Mean Corpuscular HGB Conc 32.5 g/dl (32-36); Mean Corpuscular Hemoglobin 28.3 pg (26-34); Mean Corpuscular Volume 87.2 fl (80-100); Mean Platelet Volume 9.3 fl (7.4-10.4); Platelet Count Result 232 k/mm3 (150-375); Red Cell Distribution Width 15.2 % (11.5-14.5); White Blood Count 8.5 K/mm3 (4.5-10.0)
[2020-02-11 04:52] LABS: Alanine Aminotransferase 43 U/L (4-35); Albumin Level 3.1 g/dL (3.5-5.1); Alkaline Phosphatase 118 U/L (38-126); Anion Gap 10.6 mmol/L (7-16); Aspartate Amino Transferase 34 U/L (14-36); Bilirubin,Total < 0.1 mg/dL (0.2-1.3); Blood Urea Nitrogen 20 mg/dL (7-17); Calcium 7.7 mg/dL (8.4-10.2); Carbon Dioxide 26 mmol/L (22-30); Chloride 104 mmol/L (98-107); Estimated CRCL calculation 114 ml/min; Estimated Glomerular Filt Rate > 60; Glucose 332 mg/dL (65-105); Potassium 3.6 mmol/L (3.4-5.0); Sodium 137 mmol/L (137-145)
[2020-02-11] MEDS: SODIUM CHLORIDE 0.9% IV 1,000 ML 125 ML IV CONT (05:13)
[2020-02-11 07:47] VITALS: BP 119/59; PULSE 86; RESP 20; TEMP 36.4; O2SAT 96
--- NOTE | 2020-02-11 09:12 | P.CDI_ITS ---
CDI Query Clarification Request - In H&P, abdomen firm and distended documented. Emesis of appox 1000cc documented. - Abdominal pain documented - KUB showed ileus and gas, with small amount of stool, will place NG tube with intermittant suction to relieve some of her symptoms. documented. - Coders cannot code from KUB findings. Please clarify cause for abdominal pain, distention and emesis: * Ileus * Constipation * Both constipation and ileus * Unable to determine <Nitza Montenegro RN - Last Filed: 02/11/20 09:20> Clarified Diagnosis (1) Ileus: Code(s): K56.7 - Ileus, unspecified <Nitza Montenegro RN - Last Filed: 02/11/20 09:20> Status: Acute <Nitza Montenegro RN - Last Filed: 02/11/20 09:20> Assessment and Plan: patient with constipation, distant, nausea and vomiting KUB shows ileus <Parish Hoover MD - Last Filed: 02/27/20 17:12>
[2020-02-11] MEDS: amLODIPine BESYLATE 5 MG TABLET 10 MG PO (09:21)
[2020-02-11 10:49] VITALS: O2SAT 94
[2020-02-11 11:00] VITALS: BP 144/81; PULSE 113; RESP 22; TEMP 36.4; O2SAT 98
--- NOTE | 2020-02-11 11:00 | PC.NURSE ---
Patient to ultrasound via stretcher.
--- NOTE | 2020-02-11 12:23 | PC.NURSE ---
Patient returned to room from ultrasound.
[2020-02-11] MEDS: traMADol HCL 50 MG TABLET PO (13:10)
[2020-02-11] MEDS: DOCUSATE SODIUM 100 MG CAPSULE PO (13:10)
[2020-02-11] MEDS: CYANOCOBALAMIN 1,000 MCG TABLET 1000 MCG PO (13:10)
[2020-02-11] MEDS: CALCIUM CARBONATE (OSCAL) 500 MG TABLET PO (13:10)
--- NOTE | 2020-02-11 13:26 | PM.DS ---
DS: Admitting Diagnosis Admitting Diagnosis Admitting Diagnosis: Unspecified abdominal pain DS: Discharge Diagnosis Discharge Diagnosis (1) Abdominal pain: Code(s): R10.9 - Unspecified abdominal pain Status: Acute Assessment and Plan: 1) Abdominal pain: Code(s): R10.9 - Unspecified abdominal pain Status: Acute Assessment and Plan: 02/10/20 12:25 64-year-old female with history of multiple sclerosis a 30 year and has been bedridden on wheels classify fever with history of chronic constipation due possibly to pain medication, and presented emergency department with a complaint abdominal pain nausea, CT scan of the abdomen was done, however it showed right breast mass with osteolytic lesion in [id number] fracture, oncologist recommended ultrasound-guided biopsy of the further evaluate. suspicious for malignancy, oncologist recommended ultrasound-guided biopsy of the further evaluate. on 02/07 patient also complained of abdominal distention nausea have an episode of vomiting, KUB showed ileus and gas, with small amount of stool, patient was placed on NG tube, with intermittent suction relieve some of her symptoms, patient NG tube is draining green bile like a today patient states feeling better not as nauseated, and passing gas her repeat KUB on 02/08 showed no ileus moderate amount of stool and some gas, pull NG tube out, staredt the patient on clear liquid, gave the patient to suppository and Colace. today patient states passing able to tolerate clear liquid, denies any nausea or vomiting, will continue Colace and suppository, will add relistore, and will monitor. patient will have ultrasound and biopsy tomorrow. (2) Acute UTI: Code(s): N39.0 - Urinary tract infection, site not specified Status: Acute Assessment and Plan: (2) Acute UTI: Code(s): N39.0 - Urinary tract infection, site not specified Status: Acute Assessment and Plan: urine culture is growing E coli pansensitive will continue Rocephin. (3) Multiple sclerosis: Code(s): G35 - Multiple sclerosis Status: Acute Assessment and Plan: chronic seen by rheumatology (4) Breast mass, right: Code(s): N63.10 - Unspecified lump in the right breast, unspecified quadrant Status: Acute Assessment and Plan: patient is scheduled to have breast biopsy before discharge to hospice (5) Hypothyroidism: Code(s): E03.9 - Hypothyroidism, unspecified Status: Chronic Assessment and Plan: clinically stable (6) Ileus: Code(s): K56.7 - Ileus, unspecified Status: Acute Assessment and Plan: patient with abdominal pain nausea or vomiting KUB showed patient has ileus, patient was placed on NG tube clinical symptoms improved start the patient on clear liquids DS: Summary Hospital Course Reason for hospitalization: Chief complaint: Breast mass with lytic lesions/UTI/abdominal pain/ Narrative: Ivonne Saldaña is a 64 year old female Who has a history of multiple sclerosis. The patient typically has doors that comes into her house and helps throughout. She lives home alone. She came to the emergency room for complaints of abdominal pain I talked to Bambi who stated that the patient has been having some abdominal pain and lower back pain for at least 2 weeks. The patient typically has a normal bowel regimen and believes that the patient had an at [place] enema about a week ago. The patient stated she has not had a bowel movement 3 days. She has tried lactulose and that did seem to help. Her abdomen is distended and firm. The patient had a emesis prior to me coming in to see her about a 1000 cc. She is incontinent of urine. She is requesting a Whitlock catheter. She has had no fever chills. She feels weaker than normal. She has had MS for several years she had symptoms that started back in the 70s but was not officially diagnosed until 1994. Her lesion
[2020-02-11] MEDS: diazePAM 5 MG TABLET PO (14:51)
[2020-02-16 17:00] LABS: Hepatitis C RNA, Quant PCR <15 IU/mL
== END 2020-02-11 17:08 | disposition hospice, home (50) | DRG 598 ==
LOC: ANHED 10:24 → ANHIMU 14:46
PROVIDERS: Nurse Practitioner; Admitting Provider Family Medicine; Emergency Provider Emergency Medicine; PCP Internal Medicine; Visit Provider Family Medicine
DX: C50.911 Malignant neoplasm of unspecified site of right female breast; M48.54XA Collapsed vertebra, not elsewhere classified, thoracic region, initial encounter for fracture; K56.7 Ileus, unspecified; N39.0 Urinary tract infection, site not specified; B96.20 Unspecified Escherichia coli [E. coli] as the cause of diseases classified elsewhere; R32 Unspecified urinary incontinence; G35 Multiple sclerosis; K59.03 Drug induced constipation; I10 Essential (primary) hypertension; E03.9 Hypothyroidism, unspecified; M89.9 Disorder of bone, unspecified; F41.9 Anxiety disorder, unspecified; F32.9 Major depressive disorder, single episode, unspecified; M54.9 Dorsalgia, unspecified; Z66 Do not resuscitate; Z79.899 Other long term (current) drug therapy; Z87.891 Personal history of nicotine dependence; Z99.3 Dependence on wheelchair
CPT/HCPCS: 19083; 19084; 36415; 51701; 74018; 74177; 76641; 80053; 81001; 83605; 83690; 83735; 84443; 85025; 85027; 85610; 85730; 86803; 87040; 87077; 87086; 87088; 87186; 87522; 88305; 88342; 96361; 96365; 96366; 96367; 96372; 96375; 96376; 99285; A9270; G0378; J0131; J0360; J0696; J2060; J2212; J2270; J2405; J2765; J2930; J3010; J3480; J7030; Q9967